=== PATIENT | female | born 1955 | race Caucasian/White ===

== ENCOUNTER → 2017-11-20 15:09 | Outpatient (CLI) | payer MEDICARE, SELFPAY ==
--- NOTE | 2017-11-20 15:16 | MM_ITS ---
MM Dig screening mamm BI w/CAD CAD Screening ORDERING PHYSICIAN : Janet Sanchez PATIENT AGE: 62 years GENDER: Female COMPARISON:.: None available reports previous mammogramsBut these images no longer available INDICATION: Routine screening. Baseline mammogram 62-year-old. . No hormones. No new complaints noncontributory family history. Hysterectomy age 39 TECHNIQUE: Standard CC and MLO images were obtained. R2 CAD reviewed. Very difficult patient position of subtle motion on right MLO but adequate &. Patient did not want repeat as per technologist . FINDINGS: Mild/moderate density breast RIGHT BREAST:. But no areas of significant concern. No dominant mass nor suspicious calcifications LEFT BREAST:12 x 13 mm slightly lobulated density at the far lateral left breast this has central lucency and thus could be a intramammary lymph node however given is generous size & no previous studies for comparison., Would recommend spot MLO and axillary cc view along with a ultrasound of this area labeled X. IMPRESSION: 1 LEFT BREAST: 12 x 13 mm nodular density at upper-outer quadrant left breast. Relative central lucency, thus this could reflecting lymph node. Warrants ultrasound and spot views to further evaluate this nodule labeled X in the left breast 2. RIGHT BREAST no areas of concern follow-up in one year recommended BI-RADS Category: 0 Need Additional Imaging Evaluaiton. RECOMMENDED FOLLOW-UP: IMM - IMMEDIATE FOLLOW-UP RECOMMENDED ...* Left breast: Ultrasound left breast. & Spot views of area labeled X; along full 90 degree. (A letter has been sent to the patient regarding results of the study.)
== END ==
PROVIDERS: Family Provider Nurse Practitioner Family; PCP Nurse Practitioner Family; Visit Provider Nurse Practitioner Family
DX: Z12.31 Encounter for screening mammogram for malignant neoplasm of breast (principal)
CPT/HCPCS: 77067

== ENCOUNTER → 2017-12-04 14:06 | Outpatient (CLI) | payer MEDICARE, SELFPAY ==
--- NOTE | 2017-12-04 14:12 | US_ITS ---
US breast LT complete COMPARISON: Mammogram additional views left breast same date HISTORY: Asymmetric density left breast TECHNIQUE: Targeted ultrasound FINDINGS: There is an oval mass at the 3:00 position near the nipple measuring 1.3 x 1.3 x 2.9 cm. This has a hypoechoic periphery with a hyperechoic center and appearance is typical of normal-appearing node. There is vascularity to the node. The surrounding breast parenchyma is unremarkable. IMPRESSION: Normal-appearing intramammary node, a 6 month follow-up mammogram will be obtained to evaluate for interval stability
--- NOTE | 2017-12-04 14:12 | MM_ITS ---
MM Dig mamm DX unilat LT CAD COMPARISON: Digital mammograms 11/20/2017 INDICATION: Additional views left breast for asymmetric density TECHNIQUE: Spot compression MLO and CC views FINDINGS: Well-defined nodular densities again seen outer quadrant approximately 2 to 3:00 position. It does appear to have a subtle central lucency and intramammary node is a possibility. There is no other abdomen I seen. Ultrasound performed the same date showed a normal-appearing node at this location. IMPRESSION: Intramammary node as described, possibly 6 month follow-up mammogram should be considered in view of the size of the node to assure interval stability BI-RADS Category: 3 Benign Finding Short Term Follow-up RECOMMENDED FOLLOW-UP: 6M - 6 MONTH FOLLOW-UP (A letter has been sent to the patient regarding results of the study.)
== END ==
PROVIDERS: Family Provider Nurse Practitioner Family; PCP Nurse Practitioner Family; Visit Provider Nurse Practitioner Family
DX: R92.8 Other abnormal and inconclusive findings on diagnostic imaging of breast (principal)
CPT/HCPCS: 76641; 77065

== ENCOUNTER → 2019-07-22 15:13 | Outpatient (CLI) | payer MEDICARE, SELFPAY ==
--- NOTE | 2019-07-22 15:18 | MM_ITS ---
PROCEDURE: MM DIG SCREENING MAMM BI W/CAD CLINICAL INDICATION: SCREENING There is no personal or family history of breast cancer. COMPARISON: [facility] MM Dig screening mamm BI w/CAD from 11/20/2017 DXLT MM Dig mamm DX unilat LT CAD from 12/04/2017 TECHNIQUE: Standard CC and MLO images were obtained. R2 CAD reviewed. FINDINGS: Scattered fibroglandular densities are seen throughout both breasts. Again noted is the stable asymmetric density outer quadrant left breast at approximately 3 o'clock position which was noted to be an intramammary node on previous ultrasound examination. The nipples are inverted bilaterally this is been noted previously. There is a mole marker on each breast. There is no new or suspicious lesion in either breast and no suspicious microcalcifications. IMPRESSION: Fibrofatty parenchyma with no suspicious lesions seen BI-RAD Category: 2 Benign Finding(s) FOLLOW-UP: 1YR 1 Year Follow-up (A letter has been sent to the patient regarding results of the study.) Dictated by: Dr. Benigno Trent MD 07/23/2019 15:[address] Benigno Trent MD in [place] 07/23/2019 15:32
== END ==
PROVIDERS: PCP Nurse Practitioner Family; Visit Provider Nurse Practitioner Family
DX: Z12.31 Encounter for screening mammogram for malignant neoplasm of breast (principal)
CPT/HCPCS: 77067

== ENCOUNTER → 2020-08-06 09:08 | Outpatient (CLI) | payer MEDICARE, SELFPAY ==
--- NOTE | 2020-08-06 09:12 | MM_ITS ---
PROCEDURE: MM DIG SCREENING MAMM BI W/CAD Digital Breast Tomosynthesis Included CLINICAL INDICATION: SCREENING There is no personal or family history of breast cancer. It was very difficult to position the patient for proper views due to marked obesity. COMPARISON: MG [facility]BI MM Dig screening mamm BI w/CAD from 11/20/2017 MG DXLT MM Dig mamm DX unilat LT CAD from 12/04/2017 MG MM DIG SCREENING MAMM BI W/CAD from 07/22/2019 TECHNIQUE: Standard CC and MLO images and 3D Tomosynthesis was obtained. R2 CAD reviewed. FINDINGS: Nodular densities are seen in each breast on a background of fatty breast parenchyma. Again noted are the fact that the nipples are inverted bilaterally. There is a stable asymmetric density outer quadrant left breast shown to be an intramammary node on previous ultrasound study. There is no new or suspicious lesion in either breast and no suspicious microcalcifications. IMPRESSION: Stable exam with no suspicious lesions seen BI-RAD Category: 2 Benign Finding(s) FOLLOW-UP: 1YR 1 Year Follow-up (A letter has been sent to the patient regarding results of the study.) Dictated by: Dr. Benigno Trent MD 08/09/2020 12:23 Dr. Benigno Trent MD in [place] 08/09/2020 12:23
--- NOTE | 2020-08-06 09:13 | XR_ITS ---
PROCEDURE: XR CHEST 2V CLINICAL HISTORY: ORTHOPNEA Shortness of air COMPARISON: CR CXR CHEST(2 VIEWS-NOT PORTABLE) from 06/17/2014 FINDINGS: There is cardiomegaly with prominence of the mediastinum. The patient is slightly rotated which may accentuate the mediastinal prominence. Mediastinum appears more prominent than when compared to the previous exam but may be related to technical factors and could be confirmed with CT.. No lobar consolidation or collapse is evident. No acute bony findings. IMPRESSION: Cardiomegaly with mild prominence of the mediastinum otherwise negative. Dictated by: Dario Rivas MD 08/06/2020 12:01 Dario Rivas MD in [place] 08/06/2020 12:01
--- NOTE | 2020-08-06 09:42 | CA_ITS ---
APPROVED REPORT EXAM: Comprehensive 2D, Doppler, and color-flow Echocardiogram Business Instructor: Alix Zavala RDCS Ht: 5 ft 3 in Wt: 300lbs BSA: 2.30 BP: 116/80 mmHg Indications: MORBID OBESITY TDS,HRN,HLP,SALEH,SOA ,ORTHOPNEA 2D Dimensions LVOT 1.81 cm (M/F) 1.5-2.5 M-Mode Dimensions RVDd 2.77 cm (0.9-2.6) LA Diam 2.83 cm (1.9-4.0) LVDd 5.86 cm (3.5-5.7) Ao Diam 3.18 cm (2.0-3.7) LVDs 4.07 cm (3.5-5.7) IVSd 0.89 cm (0.6-1.1) PWd 0.94 cm (0.6-1.1) EF (Teich) 57.20% FS 30.50% EDV (Teich) 170.50 mL ESV (Teich) 72.90 mL LV Diastology E Decel Time 170.00 (160-240 msec) E/A Ratio 1.1 MED E' 6.20 (< 7 cm/sec) E'/MED E' Ratio 16.08 (>14) LAT E' 10.00 (<10 cm/sec) E/LAT E' Ratio 9.97 (>14) Aortic Valve LVOT Max 141.00 (70-110 cm/s) LVOT VTI 36.92 cm AoV Peak Shubham. 208.00 (50-130 cm/s) AO Peak GR. 17.40 mmHg AO Mean GR. 11.00 (<5 mmHg) AO VTI 48.88 (18-25 cm) NAYANA (VTI) 1.94 (2.5-4.5 cm2) Mitral Valve MV E Max Shubham. 100.00 (40-130 cm/s) MV A Velocity 92.00 (40-130 cm/s) E/A Ratio 1.08 MV Decel. Time 170.00 (160-240 ms) MV PHT 50.00 ms Left Ventricle Left atrium is mildly enlarged, left ventricle is normal size, mild concentric left ventricular hypertrophy, visually estimated ejection fraction 55% with no regional wall motion abnormality, grade 1 diastolic dysfunction seen without tissue Doppler evidence of raise left atrial pressure. Right Ventricle Right atrium and right ventricle mildly enlarged with normal contractility. Aortic Valve Aortic valve is thickened and calcified, there is no significant aortic stenosis or aortic insufficiency. Mitral Valve Mitral valve is grossly normal, there is mild mitral regurgitation. Tricuspid Valve Tricuspid valve is grossly normal, there is mild tricuspid regurgitation, tricuspid regurgitation jet velocity is inadequate for calculation of the right ventricular systolic pressure. Pulmonic Valve Pulmonic valve is poorly visualized. Great Vessels Aortic root is normal size. Pericardium No significant pericardial effusion noted. Conclusion 1. Mild biatrial enlargement, normal left ventricular size, mild concentric left ventricular hypertrophy, visually estimated ejection fraction 55% with no regional wall motion abnormality, grade 1 diastolic dysfunction seen without tissue Doppler evidence of raise left atrial pressure. 2. Mildly enlarged right ventricle with normal contractility. 3. Mild mitral and tricuspid regurgitation. 4. No significant pericardial effusion noted. Electronically signed by : Miguel Dowell, 08/06/2020 12:07:02
== END ==
PROVIDERS: PCP Nurse Practitioner Family; Visit Provider Nurse Practitioner Family
DX: Z12.31 Encounter for screening mammogram for malignant neoplasm of breast (principal); R06.02 Shortness of breath
CPT/HCPCS: 71046; 77063; 77067; 93306

== ENCOUNTER 2024-07-18 12:01 | Outpatient (CLI) | payer MEDICARE, SELFPAY ==
[2024-07-18 12:36] LABS: Basophils # 0.2 K/mm3 (0-0.2); Basophils % 1.2 % (0.1-2.0); Eosinophils # 0.3 K/mm3 (0.0-0.4); Eosinophils % 2.3 % (0.1-12.0); Hematocrit 44.9 % (37.0-47.0); Hemoglobin 15.1 g/dL (12.2-16.2); Lymphocytes # 5.4 K/mm3 (0.7-4.5); Lymphocytes % 41.7 % (10-50); Mean Corpuscular HGB Conc 33.5 g/dL (31.8-35.4); Mean Corpuscular Hemoglobin 29.2 pg (27.0-31.2); Mean Corpuscular Volume 86.9 fl (81-99); Mean Platelet Volume 8.7 fl (7.4-10.4); Monocytes # 0.6 K/mm3 (0.1-1.0); Monocytes % 4.3 % (1.7-9.3); Neutrophils # 6.5 K/mm3 (1.8-7.8); Neutrophils % 50.4 % (37.0-80.0); Platelet Count 202 K/mm3 (142-424); Red Blood Count 5.16 M/mm3 (4.20-5.40); Red Cell Distribution Width 15.3 % (11.5-17.5)
[2024-07-24 21:08] LABS: D001-IgE D pteronyssinus <0.10 kU/L (Class 0); D002-IgE D farinae <0.10 kU/L (Class 0); E001-IgE Cat Dander <0.10 kU/L (Class 0); E005-IgE Dog Dander <0.10 kU/L (Class 0); E072-IgE Mouse Urine <0.10 kU/L (Class 0); G002-IgE Bermuda Grass <0.10 kU/L (Class 0); G006-IgE Timothy Grass <0.10 kU/L (Class 0); I006-IgE Cockroach, German <0.10 kU/L (Class 0); Immunoglobulin E, Total 22 IU/mL (6-495); M001-IgE Penicillium chrysogen <0.10 kU/L (Class 0); M002-IgE Cladosporium herbarum <0.10 kU/L (Class 0); M003-IgE Aspergillus fumigatus <0.10 kU/L (Class 0); M006-IgE Alternaria alternata <0.10 kU/L (Class 0); T001-IgE Maple/Box Elder <0.10 kU/L (Class 0); T003-IgE Common Silver Birch <0.10 kU/L (Class 0); T006-IgE Cedar, Mountain <0.10 kU/L (Class 0); T007-IgE Oak, White <0.10 kU/L (Class 0); T008-IgE Elm, American <0.10 kU/L (Class 0); T010-IgE Walnut <0.10 kU/L (Class 0); T011-IgE Maple Leaf Sycamore <0.10 kU/L (Class 0); T014-IgE Cottonwood <0.10 kU/L (Class 0); T015-IgE Ash, White <0.10 kU/L (Class 0); T022-IgE Pecan, Hickory <0.10 kU/L (Class 0); T070-IgE White Mulberry <0.10 kU/L (Class 0); W001-IgE Ragweed, Short <0.10 kU/L (Class 0); W011-IgE Thistle, Russian <0.10 kU/L (Class 0); W014-IgE Pigweed, Common <0.10 kU/L (Class 0); W018-IgE Sheep Sorrel <0.10 kU/L (Class 0)
== END 2024-07-18 23:59 | disposition home or self-care (01) ==
LOC: LAB 12:01
PROVIDERS: PCP Nurse Practitioner Family; Visit Provider Internal Medicine Pulmonary Disease
DX: J30.9 Allergic rhinitis, unspecified (principal)
CPT/HCPCS: 36415; 82785; 85025; 86003

== ENCOUNTER 2024-11-18 07:51 | Outpatient (CLI) | payer MEDICARE, SELFPAY ==
[2024-11-18 08:40] VITALS: PULSE 68; PULSE 74
[2024-11-18] MEDS: ALBUTEROL 0.083% 2.5 MG/3 ML NEB IH (08:40)
== END 2024-11-18 23:59 | disposition home or self-care (01) ==
LOC: RT 07:51
PROVIDERS: PCP Nurse Practitioner Family; Visit Provider Internal Medicine Pulmonary Disease
DX: R06.09 Other forms of dyspnea (principal)
CPT/HCPCS: 94060; 94618; 94640; 94726; 94729; J7613

== ENCOUNTER 2025-05-29 08:57 | Outpatient (CLI) | payer MEDICARE, SELFPAY ==
--- NOTE | 2025-05-29 08:59 | MM_ITS ---
PROCEDURE INFORMATION: Exam: MG Bilateral Screening 3D Mammography Exam date and time: 05/29/2025 9:33 AM Age: 69 years old Clinical indication: Screening examination TECHNIQUE: Imaging protocol: Bilateral Screening tomosynthesis and 2D mammography including computer-aided detection (CAD) when performed. Per the technologist the best possible images were obtained as the patient had difficulty with positioning. The exam is degraded by lack of posteroinferior tissue on both MLO views. COMPARISON: 1. MG MM DIG SCREENING MAMM BI W/CAD 08/06/2020 9:25 AM 2. MG MM DIG SCREENING MAMM BI W/CAD 07/22/2019 3:27 PM FINDINGS: MAMMOGRAPHY: Breast composition: There are scattered areas of fibroglandular density. Mass: No suspicious masses. Architectural distortion: None. Calcifications: No suspicious calcifications. Asymmetric density: None. Skin thickening: None. Axillary adenopathy: None. IMPRESSION: No mammographic evidence of malignancy. Annual screening is recommended unless otherwise clinically indicated. ASSESSMENT: BI-RADS Category 1: Negative.
--- NOTE | 2025-05-29 08:59 | XR_ITS ---
FINAL REPORT TECHNIQUE: Bone densitometry calculations of the lumbar spine and left hip were obtained. CLINICAL HISTORY: post menopausal COMPARISON: None FINDINGS: Using L1-4, the bone mineral density of the spine is 1.199 g/cm2, corresponding to T-score of 1.4 and a Z score of 3.3. This is within the range of normal. Using the left hip, the bone mineral density of the femoral neck is 0.721 g/cm2, corresponding to a T-score of -1.2 and a Z-score of 0.5. This is within the range of osteopenia. Using the right hip, the bone mineral density of the femoral neck is 0.751 g/cm?, corresponding to a T-score of -0.9 and a Z-score of 0.8. This is within the range of normal. NOTE: T-score: Standard deviation compared with peak bone mass of young adult mean. *Following the recommendations of the International Society of Bone densitometry, classification of hip BMD is based on the lower of two T-scores; total hip or femoral neck. IMPRESSION: 1. Bone mineral density of the lumbar spine and right femoral neck within the range of normal. 2. Bone mineral density of the left femoral neck within the range of osteopenia. Reviewed, Interpreted and Dictated by Dimple Rodriguez MD Transcribed by Kirstin Solitario Authenticated and [facility]
--- OUTSIDE RECORDS SUMMARY | 2025-05-29 09:11 | XMS_ITS | Clinical Summary ---
Author Organization Healthcare Address [address] [place] [address] Care Team Providers Care Pot Runner Name Role Phone Janet Sanchez ZAYDA Primary Care Provider [phone] Allergies Active Allergy Reactions Criticality Noted Date Comments Metformin Diarrhea Medium 11/22/2023 Sertraline Nausea And Vomiting, Other - please document in the comment field Low 01/17/2023 Medications amLODIPine (Norvasc) 5 MG tablet Take 1 tablet (5 mg) by mouth 1 (one) time each day. Active aspirin 81 MG EC tablet Take 1 tablet (81 mg) by mouth 1 (one) time each day. Active cholecalciferol (Vitamin D-3) 50 MCG (2000 UT) capsule Take by mouth 2 (two) times a week. Active Jardiance 10 MG TAKE ONE TABLET BY MOUTH EVERY DAY FOR diabetes Active furosemide (Lasix) 40 MG tablet Take 1 tablet (40 mg) by mouth 1 (one) time each day in the morning. Active insulin aspart protamine-insulin aspart (NovoLOG Mix 70-30) (70-30) 100 UNIT/ML injection vial Inject under the skin 1 (one) time each day. Active INSULIN NPH ISOPHANE & REGULAR HUMAN INJ (70-30) 100 UNIT/ML SC injection INJECT 25 UNITS SUBCUTANEOUSLY AT BEDTIME Active levothyroxine (Synthroid, Levoxyl) 25 MCG tablet Take 1 tablet (25 mcg) by mouth Daily. Active Victoza 18 MG/3ML inj. pen inject 1.8 mg by subcutaneous route once daily 09/19/19 24 Active losartan (Cozaar) 100 MG tablet Take 1 tablet (100 mg) by mouth 1 (one) time each day. Active omega-3 (Fish Oil) 1000 MG capsule Take 2 capsules (2,000 mg) by mouth twice a day. Active ondansetron ODT (Zofran-ODT) 8 MG disintegrating tablet DISSOLVE ONE TABLET UNDER THE TONGUE EVERY 8 HOURS NEEDED Active oxybutynin XL (Ditropan-XL) 10 MG 24 hr tablet Take 1 tablet (10 mg) by mouth 1 (one) time each day. Active PARoxetine (Paxil) 20 MG tablet Take 1 tablet (20 mg) by mouth 1 (one) time each day. Active potassium chloride CR (Klor-Con) 10 MEQ ER tablet Take 2 tablets (20 mEq) by mouth 1 (one) time each day. Active pravastatin (Pravachol) 40 MG tablet Take 1 tablet (40 mg) by mouth every night. Active propranolol (Inderal) 20 MG tablet Take 1 tablet (20 mg) by mouth 1 (one) time each day. Active QUEtiapine (SEROquel) 100 MG tablet Take 1 tablet (100 mg) by mouth every night. 11/15/19 24 Active Immunizations Immunization Administration Dates Next Due Influenza, high-dose, quadrivalent 07/21/2023, Influenza, injectable, quadrivalent 07/22/2020,1 11/07/2017 Pneumococcal Polysaccharide PPV23 09/26/2022, Social History Tobacco Use Types Packs/Day Years Used Date Smoking Tobacco: Never Passive Smoke Exposure: Never Smokeless Tobacco: Never Alcohol Use Standard Drinks/Week Comments Never 0 (1 standard drink = 0.6 oz pur e alcohol) Comments Unknown Sex and Gender Information Value Date Recorded Sex Assigned at Female 08/30/2023 1:17 PM EST Legal Sex Female 8:46 PM EDT Gender Identity Female 08/30/2023 1:17 PM EST Sexual Orientation Not on file Last Filed Vital Signs Vital Sign Reading Time Taken Comments Blood Pressure 126/64 11/22/2023 9:11 AM EST Pulse 75 11/22/2023 9:11 AM EST Temperature 36.7 C (98 F) 11/22/2023 9:11 AM EST Respiratory Rate 18 11/22/2023 9:11 AM EST Oxygen Saturation 93% 11/22/2023 9:11 AM EST RA Inhaled Oxygen Concentration - - Weight 135 kg (297 lb 6.4 oz) 11/22/2023 9:11 AM EST Height 160 cm (5' 3 ) 11/22/2023 9:11 AM EST Body Mass Index 52.68 11/22/2023 9:11 AM EST Plan of Treatment Health Maintenance Due Date Last Done Comments [facility]-Bone Density Scan 1957 [facility]-Depression Screening 1957 [facility]-/Child/Adol SDOH Screenings 1957 [facility]- SDOH Screenings 1975 [facility]-Adult SDOH Screenings 1975 [facility]-DTaP,Tdap,and Td Vaccines (1 - Tdap) 1976 CT Colonography 2002 Colonoscopy 2002 FIT-DNA 2002 FIT 2002 FOBT 2002 Sigmoidoscopy 2002 [facility]-Colorectal Cancer Screening 2002 [facility]-Zoster Vaccines (1 of 2) 2007 [facility]-Pneumococcal Vaccine: 50+ Years (2 of 2 - PCV) 09/26/2023 09/26/2022, 06/07/2018 [id number] Vaccine (3 - season) 2025 08/19/2021, 11/26/2020 [facility]-Influenza Vaccine (#1) 05/19/202507/21, 09/26/2022, 07/22/2020, Additional history exists [facility]-RSV Vaccine: 60+ Years or (1 - 1-dose 75+ series) 2032 HPV Vaccines Aged Out No longer eligi ble based on patient's age to complete this topic [facility]-HIB Vaccines Aged Out No longer e ligible based on patient's age to complete this topic [facility]-Hepatitis A Vaccines Aged Out No longer eligible based on patient's age to complete this topic [facility]-IPV Vaccines Aged Out No longer e ligible based on patient's age to complete this topic [facility]-Rotavirus Vaccines Aged Out No lo nger eligible based on patient's age to complete this topic Insurance [address] [place] [id number] [employer] Care Teams Pot Runner Relationship Specialty Start Date End Date Janet Sanchez, ZAYDA [address] [facility] [address] PCP - General 11/22/23
--- OUTSIDE RECORDS SUMMARY | 2025-05-29 09:11 | XMS_ITS | Clinical Summary ---
Author Organization [employer] ([place], [place], [place], [place]) Address [address] [place] [address] Care Team Providers Care Learning And Development Associate Name Role Phone Janet Sanchez APRN Primary Care Provider + [phone] Allergies Active Allergy Reactions Criticality Noted Date Comments Sertraline Nausea And Vomiting 01/17/2023 Medications omega-3 fatty acids-fish oil 340-1,000 mg Cap per capsule Take 2 capsules (2 g total) by mouth in the morning and 2 capsules (2 g total) before bedtime. Active potassium chloride (KLOR-CON-M) 10 MEQ CR tablet Take 2 tablets (20 mEq total) by mouth in the morning. Active furosemide (LASIX) 40 MG tablet Take 1 tablet (40 mg total) by mouth in the morning. Active levothyroxine (SYNTHROID, LEVOTHROID) 25 MCG tablet Take 1 tablet (25 mcg total) by mouth Every morning on an empty stomach. Active aspirin 81 MG EC tablet Take 1 tablet (81 mg total) by mouth in the morning. Active propranoloL (INDERAL) 20 MG tablet Take 1 tablet (20 mg total) by mouth in the morning. Active pravastatin (PRAVACHOL) 40 MG tablet Take 1 tablet (40 mg total) by mouth in the morning. Active PARoxetine (PAXIL) 20 MG tablet Take 1 tablet (20 mg total) by mouth every morning. Active cholecalcifero l, vitamin D3, 50 mcg (2,000 unit) Cap Take by mouth twice a week. Active oxybutynin (DITROPAN-XL) 10 MG 24 hr tablet Take 1 tablet (10 mg total) by mouth in the morning. Active losartan (COZAAR) 50 MG tablet Take 1 tablet (50 mg total) by mouth in the morning. Active insulin aspart protamine-insu mabel aspart (NovoLOG MIX 70/30) 100 unit/mL (70-30) Soln injection Inject subcutaneously daily 25 units. Active liraglutide (VICTOZA) 0.6 mg/0.1 mL (18 mg/3 mL) syringe Inject 0.3 mLs (1.8 mg total) subcutaneously in the morning. Active amLODIPine (NORVASC) 5 MG tablet Take 1 tablet (5 mg total) by mouth daily. 3 Active NovoLIN 70/30 U-100 Insulin 100 unit/mL (70-30) injection Inject 25 Units subcutaneously nightly. 3 Active QUEtiapine (SEROquel) 100 MG tablet Take 1 tablet (100 mg total) by mouth daily. 3 Active TRUEplus Insulin 1 mL 30 gauge x 01/31 Syrg 3 Active Active Problems Problem Noted Date Diagnosed Date BRODY (obstructive sleep apnea) 02/02/2023 HTN (hypertension) 02/02/2023 Anxiety 02/02/2023 Depression 02/02/2023 Diabetes mellitus, type 2 02/02/2023 Hypothyroidism 02/02/2023 Social History Tobacco Use Types Packs/Day Years Used Date Smoking Tobacco: Never Smokeless Tobacco: Never Alcohol Use Standard Drinks/Week Comments Never 0 (1 standard drink = 0.6 oz pur e alcohol) Food Insecurity Answer Date Recorded Food run out past 12 months Not on file 09/18 Food did not last past 12 months Not on file 09/29/2023 Employment Answer Date Recorded Help finding and keeping a job Not on file 0 09/29/2023 Family and Community Support Answer Adiel e Recorded Help with Day to Day Activities Not on file 09/29/2023 Feeling Lonely or Isolated Not on file 09/29 Educational Attainment Answer Date Matty rded Speak language other than Syriac at home Not on file 09/29/2023 Want help with school or training Not on file 09/29/2023 Substance Use Answer Date Recorded Used prescription meds for non-medical reasons N ot on file 09/29/2023 Used illegal drugs past 12 months Not on file 09/29/2023 Comments Unknown Sex and Gender Information Value Date Recorded Sex Assigned at Not on file Legal Sex Female 12:07 PM CDT Gender Identity Not on file Sexual Orientation Not on file Last Filed Vital Signs Vital Sign Reading Time Taken Comments Blood Pressure 151/72 02/02/2023 7:59 AM EDT Pulse 69 02/02/2023 7:59 AM EDT Temperature 36.4 C (97.5 F) 02/02/2023 7:59 AM EDT Respiratory Rate 20 02/02/2023 7:59 AM EDT Oxygen Saturation 96% 02/02/2023 7:59 AM EDT Inhaled Oxygen Concentration - - Weight 136.1 kg (300 lb) 01/26/2023 3:00 PM EDT Height 160 cm (5' 3 ) 01/26/2023 3:00 PM EDT Body Mass Index 53.14 01/26/2023 3:00 PM EDT Plan of Treatment Health Maintenance Due Date Last Done Comments CT Colonography 1957 Colonoscopy 1957 Colorectal Cancer Screening 1957 DXA SCAN 1957 Diabetic Kidney Health Evaluation (KED) 1957 FOBT/FIT 1957 Fit-DNA (Cologuard) 1957 Sigmoidoscopy 1957 Diabetic Eye Exam 1967 Hepatitis C Screening 1975 DTAP/TDAP/TD VACCINES (1 - Tdap) 1976 Pneumococcal 50+ years (1 of 2 - PCV) 1976 Breast Cancer Screening 1997 Shingles Vaccine (Zoster) (1 of 2) 2007 Respiratory Syncytial Virus (RSV) Adult or (1 - Risk 60-74 years 1-dose series) 2017 Hemoglobin A1C 02/02/2023 Medicare Initial AWV [id number] 09/19/2023 Tobacco Cessation Counseling and Screening (12+) 02/0202/02/2023 Falls Risk Screening 09/18/2024 COVID-19 VACCINE ( - season) 2025 Influenza Vaccine (#1) 2025 Medical Devices Implanted Type Area Interactive Digital Media Specialist Device Identifier Shelf Expiration Date Model / Serial / Lot Iol Uv Clareon +17.5 [id number] - [id number] Implanted:Qty: 1 on 01/19/2023 by Camilla Flores MD at [facility] IMPLANTS Left: Eye HOWARD 07/19/2026 [id number] / [id number] / Iol Uv Clareon +18.0 [id number] - [id number] Implanted:Qty: 1 on 02/02/2023 by Camilla Flores MD at [facility] IMPLANTS N/A: Eye HOWARD 05/31/2026 [id number] / [id number] / Insurance [address] [place] [id number] [facility] Care Teams Learning And Development Associate Relationship Specialty Start Date End Date Janet Sanchez, ROLLER MAN [address] [place] [address] PCP - General Family Medicine 01/18/23
--- OUTSIDE RECORDS SUMMARY | 2025-05-29 09:11 | XMS_ITS | Referral Summary ---
Author Organization [employer] ([place], [place], [place], [place]) Address [address] [place] [address] Care Team Providers Care Box Icer Name Role Phone Janet Sanchez APRN Primary Care Provider + [phone] Allergies Active Allergy Reactions Criticality Noted Date [...] Date Matty rded Speak language other than Belarusian at home Not on file 09/29/2023 Want [...] 01/26/2023 3:00 PM EDT Plan of Treatment Not on file Medical Devices Implanted Type Area Color Shop Helper Device Identifier Shelf Expiration Date Model / Serial / Lot Iol Uv Clareon +17.5 [id number] - [id number] Implanted:Qty: 1 on 01/19/2023 by Camilla Flores MD at [facility] IMPLANTS Left: Eye HOWARD 07/19/2026 [id number] / [id number] / Iol Uv Clareon +18.0 [id number] - [id number] Implanted:Qty: 1 on 02/02/2023 by Camilla Flores MD at [facility] IMPLANTS N/A: Eye HOWARD 05/31/2026 [id number] / [id number] / Insurance [facility] Care Teams Box Icer Relationship Specialty Start Date End Date Janet Sanchez, CARGO ROUTER [address] [place] [phone] PCP - General Family Medicine 01/18/23
--- OUTSIDE RECORDS SUMMARY | 2025-05-29 09:11 | XMS_ITS | Encounter Summary ---
Author Organization Healthcare Address [address] [place] [address] Care Team Providers Care Route Sales Delivery Drivers Supervisor Name Role Phone Evita Chacon APRN Primary Care Provider + [phone] Janet Sanchez APRN Primary Care Provider + [phone] Encounter Details Date Type Department Care Team (Latest Contact Info) Description 08/30/2023 [facility] [address] [place] [id number] Janet Sanchez APRN [address], [place] [id number] Morbid (severe) obesity with alveolar hypoventilation (CMS/HCC) (Primary Dx) Social History Tobacco Use Types Packs/Day Years Used Date Smoking Tobacco: Never Assessed Comments Unknown Sex and Gender Information Value Date Recorded Sex Assigned at Female 08/30/2023 1:17 PM EST Legal Sex Female 8:46 PM EDT Gender Identity Female 08/30/2023 1:17 PM EST Sexual Orientation Not on file documented as of this encounter Plan of Treatment Not on file documented as of this encounter Visit Diagnoses Diagnosis Morbid (severe) obesity with alveolar hypoventilation (CMS/HCC)- Primary documented in this encounter Care Teams Route Sales Delivery Drivers Supervisor Relationship Specialty Start Date End Date Evita Chacon APRN [address], [place] [id number] PCP - General 01/29/21 11/21/23 Janet Sanchez APRN [address], [place] [id number] PCP - General 11/22/23 documented as of this encounter
== END 2025-05-29 23:59 | disposition home or self-care (01) ==
LOC: RAD 08:57
PROVIDERS: PCP Nurse Practitioner Family; Visit Provider Nurse Practitioner Family
DX: Z12.31 Encounter for screening mammogram for malignant neoplasm of breast (principal); M85.852 Other specified disorders of bone density and structure, left thigh; R92.323 Mammographic fibroglandular density, bilateral breasts; Z78.0 Asymptomatic menopausal state
CPT/HCPCS: 77063; 77067; 77080